=== PATIENT | male | born 1975 | race Caucasian/White ===

== ENCOUNTER 2016-08-18 12:00 | Observation (INO) | payer SELFPAY ==
[~2016-08-18] VITALS: Ht 175.3 cm; Wt 77.4 kg
[~2016-08-18 12:00] MED LIST: FLEXERIL10 MG PO; MOTRIN600 MG PO; NAPROSYN500 MG PO; NOHOMEMEDS
[2016-08-18] MEDS ORDERED: OMEPRAZOLE20 MG PO (12:43)
[2016-08-18 12:53] LABS: EOSINOPHIL (%) 0.4 % (0-5); EOSINOPHIL COUNT 0.1 K/uL (0-0.3); HEMATOCRIT 45.7 % (38.0-50.0); IMMATURE GRANULOCYTE (%) 1.9 % (0.0-0.7); IMMATURE GRANULOCYTE COUNT 3.3 K/uL; LYMPHOCYTE COUNT 1.7 K/uL (1.0-2.8); MCH 32.8 PG (29.0-34.0); MCHC 34.6 G/DL (30.0-36.0); MEAN PLAT.VOLUME 9.5 uM^3 (9.0-12.4); MONOCYTE (%) 6.3 % (3-12); MONOCYTE COUNT 1.1 K/uL (0-0.8); NEUTROPHIL (%) 81.4 % (45-76); NEUTROPHIL COUNT 14.1 K/uL (1.8-6.4); PLATELET COUNT 319 K/uL (156-360); RBC DIS.WIDTH-SD 43.8 % (39-53); RED BLOOD COUNT 4.81 M/uL (4.00-5.50); WHITE BLOOD COUNT 17.3 K/uL (4.1-10.2)
[2016-08-18 13:02] LABS: CHLORIDE 105 mEq/L (99-109); POTASSIUM 3.7 mEq/L (3.7-5.4); SODIUM 140 mEq/L (136-147)
[2016-08-18 13:04] LABS: GLUCOSE 119 mg/dL (70-99)
[2016-08-18 13:05] LABS: ANION GAP 12 MEQ/L (2-14)
[2016-08-18 13:06] LABS: TOTAL BILIRUBIN 0.9 mg/dL (0.0-1.0)
[2016-08-18 13:08] LABS: ALKALINE PHOSPHATASE 57 IU/L (3-129); GFR ESTIMATE (CALCULATED) > 59 mL/min/
[2016-08-18 13:09] LABS: UREA NITROGEN (BUN) 12 mg/dL (9-23)
[2016-08-18 13:11] LABS: LIPASE 13 U/L (1.0-51.0)
[2016-08-18 14:53] LABS: ADD MIUA? YES; BILIRUBIN NEGATIVE; BLOOD SMALL; COLOR YELLOW ((YELLOW)); GLUCOSE (STRIP) NEGATIVE; KETONES 20; LEUKOCYTES NEGATIVE; NITRITE NEGATIVE; PROTEIN (STRIP) 100; SPECIFIC GRAVITY 1.023 (1.000-1.030); UROBILINOGEN 0.2 MG/DL (0.2-1.0)
[2016-08-18 14:58] LABS: BACTERIA NONE SEEN /HPF; EPITHELIAL CELLS RARE /HPF; MUCUS TRACE /LPF; RED BLOOD CELLS 20-30 /HPF (0-5)
[2016-08-18 19:20] VITALS: BP 136/90
[2016-08-19] VITALS: BP 138/92
[2016-08-19 04:00] VITALS: BP 132/88
[2016-08-19 06:54] LABS: HEMATOCRIT 40.6 % (38.0-50.0); MCH 33.1 PG (29.0-34.0); MCHC 34.2 G/DL (30.0-36.0); MCV 96.7 FL (86-99); MEAN PLAT.VOLUME 10.2 uM^3 (9.0-12.4); PLATELET COUNT 255 K/uL (156-360); RBC DIS.WIDTH-CV 13.1 % (11.8-14.6); RBC DIS.WIDTH-SD 46.1 % (39-53); WHITE BLOOD COUNT 9.9 K/uL (4.1-10.2)
[2016-08-19] MEDS ORDERED: CIPRO500 MG PO (15:06)
[2016-08-19] MEDS ORDERED: PERCOCET 5/31 TABLET PO (15:07)
[2016-08-19 15:44] VITALS: BP 126/85
== END 2016-08-19 17:02 | disposition home or self-care (01) ==
LOC: EME 12:00 → EDOF 17:52 → 5WEST 17:52 → EDOF 17:52 → 5WEST 19:18
PROVIDERS: Emergency Medicine; Family Medicine
DX: N13.2 Hydronephrosis with renal and ureteral calculous obstruction (principal); D72.829 Elevated white blood cell count, unspecified; F17.200 Nicotine dependence, unspecified, uncomplicated
CPT/HCPCS: 74000; 74177; 80053; 81003; 83690; 85025; 85027; 94799; 99281; 99285; C1769; C1876; C9113; G0378; J0744; J1170; J1885; J2250; J2270; J2405; J3010; J7030; J7040; J7050